=== PATIENT | female | born 1980 | race Asian ===

== ENCOUNTER 2016-12-02 00:13 | Emergency (ER) | payer OTHER ==
[~2016-12-02] VITALS: Ht 165.1 cm; Wt 95.3 kg
[~2016-12-02 00:13] MED LIST: ATEN25TA21 PO; DIOVAN320 MG PO; DIVA500T2 PO; FLUTICASONE50 MCG; HALO10TA5 PO; LEVO0.0218 PO; LEVO0.1224 PO; NEXIUM40 M1 PO; SERT100T PO; SIMV10TA PO; TRAZ100T PO; ZANTAC 75 PO
[2016-12-02 01:42] VITALS: BP 165/80; TEMP 98.5
== END 2016-12-02 01:43 | disposition home or self-care (01) ==
LOC: ED 00:13
DX: F20.0 Paranoid schizophrenia (principal); R44.0 Auditory hallucinations
CPT/HCPCS: 99282

== ENCOUNTER 2017-03-15 15:30 | Emergency (ER) | payer OTHER ==
[~2017-03-15] VITALS: Ht 162.6 cm; Wt 100.7 kg
[2017-03-15 15:30] VITALS: TEMP 99.3
[2017-03-15 16:00] VITALS: BP 158/104
== END 2017-03-15 16:00 | disposition home or self-care (01) ==
LOC: ED 15:30
DX: K08.89 Other specified disorders of teeth and supporting structures (principal); K02.9 Dental caries, unspecified; K04.7 Periapical abscess without sinus; K05.30 Chronic periodontitis, unspecified
CPT/HCPCS: 99281

== ENCOUNTER 2017-07-16 13:57 | Emergency (ER) | payer OTHER ==
[~2017-07-16] VITALS: Ht 165.1 cm; Wt 95.3 kg
[2017-07-16 14:00] VITALS: BP 135/75; TEMP 98
== END 2017-07-16 14:15 | disposition home or self-care (01) ==
LOC: ED 13:57
DX: R05 Cough (principal); R09.81 Nasal congestion
CPT/HCPCS: 99281

== ENCOUNTER 2017-08-04 10:34 | Emergency (ER) | payer OTHER ==
[~2017-08-04] VITALS: Ht 165.1 cm; Wt 102.5 kg
[~2017-08-04 10:34] MED LIST changes: +AMLO2.5T PO; +ATEN50TA36 PO; +SERT50TA PO; +TIROSINT25 MCG PO; +ZINC PO
[2017-08-04 10:40] VITALS: TEMP 97.9
[2017-08-04 11:21] LABS: PLATELET COUNT 484 K/uL (152-353)
[2017-08-04 11:59] LABS: POTASSIUM 3.9 mmol/L (3.6-5.2); SODIUM 133 mmol/L (136-145)
[2017-08-04 19:36] VITALS: BP 132/80
== END 2017-08-04 19:36 | disposition home or self-care (01) ==
LOC: ED 10:34
DX: R44.2 Other hallucinations (principal)
CPT/HCPCS: 36415; 80053; 80307; 80320; 80329; 81000; 85027; 99285; G0479

== ENCOUNTER 2018-01-29 12:44 | Emergency (ER) | payer OTHER ==
[~2018-01-29] VITALS: Ht 165.1 cm; Wt 95.3 kg
[2018-01-29 12:52] VITALS: BP 127/80; TEMP 98.7
[2018-01-29 13:49] LABS: PLATELET COUNT 295 K/uL (152-353)
[2018-01-29 14:21] LABS: POTASSIUM 3.6 mmol/L (3.6-5.2)
== END 2018-01-29 17:37 | disposition other institution (70) ==
LOC: ED 12:44
PROVIDERS: Family Medicine
DX: R45.851 Suicidal ideations (principal); F32.89 Other specified depressive episodes
CPT/HCPCS: 36415; 80053; 80307; 80320; 80329; 81000; 84443; 85027; 93005; 99285

== ENCOUNTER 2018-02-23 09:47 | Emergency (ER) | payer OTHER ==
[~2018-02-23] VITALS: Ht 165.1 cm; Wt 95.3 kg
[2018-02-23 11:17] LABS: PLATELET COUNT 316 K/uL (152-353)
[2018-02-23 11:24] LABS: POTASSIUM 3.9 mmol/L (3.6-5.2)
[2018-02-23 11:59] VITALS: BP 116/77; TEMP 98.2
== END 2018-02-23 12:06 | disposition home or self-care (01) ==
LOC: ED 09:47
PROVIDERS: Family Medicine
DX: R05 Cough (principal); R06.2 Wheezing
CPT/HCPCS: 36415; 80048; 85027; 94664; 96367; 96374; 99284; J0696; J2930; J3475

== ENCOUNTER 2018-05-21 22:43 | Emergency (ER) | payer OTHER ==
[~2018-05-21] VITALS: Ht 165.1 cm; Wt 102.1 kg
[2018-05-21] MEDS ORDERED: CLON1TAB18 PO (23:39)
[2018-05-21 23:49] VITALS: BP 126/70; TEMP 98.5
== END 2018-05-21 23:53 | disposition home or self-care (01) ==
LOC: ED 22:43
DX: F20.89 Other schizophrenia (principal); R44.2 Other hallucinations
CPT/HCPCS: 99283

== ENCOUNTER 2018-05-30 00:54 | Emergency (ER) | payer OTHER ==
[~2018-05-30] VITALS: Ht 165.1 cm; Wt 102.1 kg
[~2018-05-30 00:54] MED LIST changes: +CLON1TAB18 PO
[2018-05-30 01:56] LABS: PLATELET COUNT 286 K/uL (152-353)
[2018-05-30 05:44] VITALS: BP 150/90; TEMP 98.1
== END 2018-05-30 05:44 | disposition home or self-care (01) ==
LOC: ED 00:54
DX: F20.89 Other schizophrenia (principal); F28 Other psychotic disorder not due to a substance or known physiological condition; F32.89 Other specified depressive episodes
CPT/HCPCS: 36415; 80053; 80307; 81000; 85027; 93005; 99283

== ENCOUNTER 2018-07-20 16:10 | Outpatient (CLI) | payer OTHER ==
[2018-07-20] MEDS ORDERED: ATEN50TA36 PO (16:31)
[2018-07-20] MEDS ORDERED: HALO10TA5 PO (16:32)
[2018-07-20] MEDS ORDERED: LAMICTAL25 MG PO (16:33)
[2018-07-20] MEDS ORDERED: LEXAPRO10 MG PO (16:34)
== END 2018-07-20 16:14 | disposition short-term general hospital (02) ==
LOC: AMB 16:10
DX: F32.89 Other specified depressive episodes (principal)
CPT/HCPCS: A0425; A0429

== ENCOUNTER 2018-07-20 16:18 | Emergency (ER) | payer OTHER ==
[~2018-07-20] VITALS: Ht 165.1 cm; Wt 96.6 kg
[2018-07-20] MEDS ORDERED: ATEN50TA36 PO (16:31)
[2018-07-20] MEDS ORDERED: HALO10TA5 PO (16:32)
[2018-07-20] MEDS ORDERED: LAMICTAL25 MG PO (16:33)
[2018-07-20] MEDS ORDERED: LEXAPRO10 MG PO (16:34)
[2018-07-20 16:51] LABS: PLATELET COUNT 244 K/uL (152-353)
[2018-07-20 17:03] LABS: POTASSIUM 3.7 mmol/L (3.6-5.2)
[2018-07-20 21:21] VITALS: BP 124/88; TEMP 98.4
== END 2018-07-20 21:25 | disposition other institution (70) ==
LOC: ED 16:18
PROVIDERS: Emergency Medicine
DX: R45.851 Suicidal ideations (principal); R00.1 Bradycardia, unspecified
CPT/HCPCS: 80053; 80307; 80320; 80329; 81000; 85027; 93005; 99285

== ENCOUNTER 2018-10-28 21:03 | Emergency (ER) | payer OTHER ==
[~2018-10-28] VITALS: Ht 165.1 cm; Wt 101.6 kg
[~2018-10-28 21:03] MED LIST changes: +LAMICTAL25 MG PO; +LEXAPRO10 MG PO
[2018-10-28 22:00] VITALS: BP 121/85; TEMP 97.6
== END 2018-10-28 22:00 | disposition home or self-care (01) ==
LOC: ED 21:03
DX: F20.89 Other schizophrenia (principal); F32.89 Other specified depressive episodes; F31.89 Other bipolar disorder; I10 Essential (primary) hypertension; E03.8 Other specified hypothyroidism
CPT/HCPCS: 99282

== ENCOUNTER 2019-01-14 01:19 | Emergency (ER) | payer OTHER ==
[~2019-01-14] VITALS: Ht 165.1 cm; Wt 101.2 kg
[2019-01-14 01:23] VITALS: BP 146/87; TEMP 98.7
== END 2019-01-14 01:52 | disposition home or self-care (01) ==
LOC: ED 01:19
DX: G47.09 Other insomnia (principal); F31.89 Other bipolar disorder; F20.89 Other schizophrenia
CPT/HCPCS: 99281

== ENCOUNTER 2019-02-19 00:38 | Emergency (ER) | payer OTHER ==
[~2019-02-19] VITALS: Ht 165.1 cm; Wt 101.2 kg
[2019-02-19 00:45] VITALS: TEMP 98.7
[2019-02-19 01:27] LABS: PLATELET COUNT 294 K/uL (152-353)
[2019-02-19 01:31] LABS: POTASSIUM 3.3 mmol/L (3.6-5.2); SODIUM 139 mmol/L (136-145)
[2019-02-19 03:35] VITALS: BP 169/84
== END 2019-02-19 03:39 | disposition home or self-care (01) ==
LOC: ED 00:38
PROVIDERS: Emergency Medicine
DX: R07.89 Other chest pain (principal); R00.1 Bradycardia, unspecified
CPT/HCPCS: 80053; 82550; 84484; 85027; 99283

== ENCOUNTER 2019-03-08 19:32 | Emergency (ER) | payer OTHER ==
[2019-03-09] MEDS ORDERED: AMLODIPINE BESYLATE PO (00:18)
== END 2019-03-08 19:50 | disposition home or self-care (01) ==
LOC: ED 19:32
DX: R10.9 Unspecified abdominal pain (principal)
CPT/HCPCS: 99281

== ENCOUNTER 2019-03-08 20:58 | Emergency (ER) | payer OTHER ==
[~2019-03-08] VITALS: Ht 165.1 cm; Wt 101.2 kg
[2019-03-08 22:35] VITALS: BP 221/111
[2019-03-08 23:12] LABS: PLATELET COUNT 404 K/uL (152-353)
[2019-03-08 23:23] LABS: POTASSIUM 3.4 mmol/L (3.6-5.2)
[2019-03-08 23:58] VITALS: TEMP 98.2
[2019-03-09] MEDS ORDERED: AMLODIPINE BESYLATE PO (00:18)
== END 2019-03-09 00:12 | disposition home or self-care (01) ==
LOC: ED 20:58
PROVIDERS: Internal Medicine
DX: E87.6 Hypokalemia (principal); R10.84 Generalized abdominal pain; R11.0 Nausea
CPT/HCPCS: 36415; 74022; 80053; 82150; 83690; 85027; 96372; 99283; J2405

== ENCOUNTER 2019-06-15 06:13 | Emergency (ER) | payer OTHER ==
[~2019-06-15] VITALS: Ht 165.1 cm; Wt 101.2 kg
[~2019-06-15 06:13] MED LIST changes: +AMLODIPINE BESYLATE PO
[2019-06-15 06:34] VITALS: TEMP 98.8
[2019-06-15 07:38] VITALS: BP 144/84
== END 2019-06-15 07:38 | disposition home or self-care (01) ==
LOC: ED 06:13
DX: J20.9 Acute bronchitis, unspecified (principal)
CPT/HCPCS: 99281

== ENCOUNTER 2019-06-29 19:37 | Emergency (ER) | payer OTHER ==
[~2019-06-29] VITALS: Ht 165.1 cm; Wt 97.5 kg
[2019-06-29 20:24] LABS: PLATELET COUNT 395 K/uL (152-353)
[2019-06-29 20:35] LABS: POTASSIUM 3.7 mmol/L (3.6-5.2)
[2019-06-29 20:40] LABS: PARTIAL THROMBOPLASTIN TIME 25.9 SECONDS (24.5-33.6)
[2019-06-29 20:48] VITALS: BP 172/113; TEMP 98.1
== END 2019-06-29 20:48 | disposition home or self-care (01) ==
LOC: ED 19:37
PROVIDERS: Hospitalist
DX: K64.8 Other hemorrhoids (principal); K62.89 Other specified diseases of anus and rectum; E07.89 Other specified disorders of thyroid
CPT/HCPCS: 36415; 80048; 81000; 81025; 85027; 85610; 85730; 96372; 99283; J1885

== ENCOUNTER 2019-08-01 01:47 | Emergency (ER) | payer OTHER ==
[~2019-08-01] VITALS: Ht 165.1 cm; Wt 97.5 kg
[2019-08-01 02:45] VITALS: BP 138/78; TEMP 97.9
== END 2019-08-01 02:45 | disposition home or self-care (01) ==
LOC: ED 01:47
DX: B36.8 Other specified superficial mycoses (principal); L29.8 Other pruritus
CPT/HCPCS: 96372; 99282; J1200

== ENCOUNTER 2019-09-06 23:02 | Outpatient (CLI) | payer OTHER | END 2019-09-06 23:11 | disposition short-term general hospital (02) | LOC: AMB 23:02 | DX: R21 Rash and other nonspecific skin eruption (principal) | CPT/HCPCS: A0425; A0429 ==

== ENCOUNTER 2019-09-06 23:15 | Emergency (ER) | payer OTHER ==
[~2019-09-06] VITALS: Ht 165.1 cm; Wt 97.5 kg
[2019-09-07 00:35] VITALS: BP 166/74; TEMP 97.5
== END 2019-09-07 00:35 | disposition home or self-care (01) ==
LOC: ED 23:15
DX: L01.09 Other impetigo (principal)
CPT/HCPCS: 99282

== ENCOUNTER 2019-10-09 00:07 | Outpatient (CLI) | payer OTHER | END 2019-10-09 00:16 | disposition short-term general hospital (02) | LOC: AMB 00:07 | DX: R10.9 Unspecified abdominal pain (principal) | CPT/HCPCS: A0425; A0427 ==

== ENCOUNTER 2019-10-09 00:20 | Emergency (ER) | payer OTHER ==
[~2019-10-09] VITALS: Ht 165.1 cm; Wt 97.5 kg
[2019-10-09 00:58] LABS: PLATELET COUNT 284 K/uL (152-353)
[2019-10-09 01:02] LABS: POTASSIUM 3.7 mmol/L (3.6-5.2); SODIUM 137 mmol/L (136-145)
[2019-10-09 02:17] VITALS: BP 139/81; TEMP 97.7
== END 2019-10-09 02:20 | disposition home or self-care (01) ==
LOC: ED 00:20
PROVIDERS: Emergency Medicine
DX: R10.84 Generalized abdominal pain (principal); R14.1 Gas pain; K59.09 Other constipation
CPT/HCPCS: 36415; 80053; 81000; 81025; 82150; 83690; 84702; 85027; 96360; 96375; 99284; J1885

== ENCOUNTER 2019-12-08 06:06 | Outpatient (CLI) | payer OTHER | END 2019-12-08 15:12 | disposition short-term general hospital (02) | LOC: AMB 06:06 | DX: R10.84 Generalized abdominal pain (principal) | CPT/HCPCS: A0425; A0427 ==

== ENCOUNTER 2019-12-08 06:15 | Emergency (ER) | payer OTHER ==
[~2019-12-08] VITALS: Ht 165.1 cm; Wt 97.5 kg
[2019-12-08 06:15] VITALS: TEMP 98.1
[2019-12-08 06:40] LABS: PLATELET COUNT 307 K/uL (152-353)
[2019-12-08 06:48] LABS: POTASSIUM 4.4 mmol/L (3.6-5.2)
[2019-12-08 10:16] VITALS: BP 133/71
== END 2019-12-08 10:16 | disposition home or self-care (01) ==
LOC: ED 06:15
PROVIDERS: Emergency Medicine
DX: R10.84 Generalized abdominal pain (principal); R14.1 Gas pain
CPT/HCPCS: 80053; 81000; 82150; 83690; 85027; 99283; Q9963

== ENCOUNTER → 2020-05-28 | Emergency (ER) | payer OTHER ==
[~2020-05-28] VITALS: Ht 165.1 cm; Wt 97.5 kg
[2020-05-28 03:43] LABS: PLATELET COUNT 334 K/uL (152-353)
[2020-05-28 03:59] LABS: POTASSIUM 4.8 mmol/L (3.6-5.2)
[2020-05-28 04:29] VITALS: BP 133/55; TEMP 98
== END ==
LOC: ED 03:08
PROVIDERS: Hospitalist
DX: R10.84 Generalized abdominal pain (principal); K59.09 Other constipation
CPT/HCPCS: 36415; 80053; 81000; 81025; 82150; 83690; 85027; 93005; 96374; 99284; J2405

== ENCOUNTER 2020-06-02 15:23 | Emergency (ER) | payer OTHER ==
[~2020-06-02] VITALS: Ht 165.1 cm; Wt 97.5 kg
[2020-06-02 16:15] LABS: PLATELET COUNT 250 K/uL (152-353)
[2020-06-02 16:20] LABS: POTASSIUM 3.9 mmol/L (3.6-5.2)
[2020-06-02 16:22] VITALS: BP 118/62; TEMP 98.7
[2020-06-02 16:28] LABS: PARTIAL THROMBOPLASTIN TIME 26.7 SECONDS (24.5-33.6)
== END 2020-06-02 16:31 | disposition home or self-care (01) ==
LOC: ED 15:23
PROVIDERS: Hospitalist
DX: K64.8 Other hemorrhoids (principal); Z79.01 Long term (current) use of anticoagulants
CPT/HCPCS: 80048; 82272; 85027; 85610; 85730; 99283

== ENCOUNTER 2020-08-29 12:03 | Outpatient (CLI) | payer OTHER | END 2020-08-29 22:59 | disposition home or self-care (01) | LOC: RAD 12:03 | DX: M54.16 Radiculopathy, lumbar region (principal) ==

== ENCOUNTER 2020-09-10 14:20 | Outpatient (CLI) | payer OTHER | END 2020-09-10 22:34 | disposition home or self-care (01) | LOC: US 14:20 | DX: R23.0 Cyanosis (principal) ==

== ENCOUNTER 2023-03-05 15:06 | Emergency (ER) | payer OTHER ==
[~2023-03-05] VITALS: Ht 165.1 cm; Wt 104.3 kg
[2023-03-05 15:10] VITALS: BP 140/72; TEMP 98.5
[2023-03-05 16:15] LABS: PLATELET COUNT 268 K/uL (152-353)
[2023-03-05 16:23] LABS: POTASSIUM 3.9 mmol/L (3.6-5.2)
== END 2023-03-05 18:00 | disposition home or self-care (01) ==
LOC: ED 15:06
PROVIDERS: Family Medicine
DX: E11.65 Type 2 diabetes mellitus with hyperglycemia (principal); Z79.84 Long term (current) use of oral hypoglycemic drugs; F20.89 Other schizophrenia; I10 Essential (primary) hypertension; E03.8 Other specified hypothyroidism; F17.210 Nicotine dependence, cigarettes, uncomplicated
CPT/HCPCS: 80053; 80307; 81002; 81025; 82150; 83690; 84443; 84484; 85027; 93005; 99283

== ENCOUNTER 2023-03-24 20:43 | Emergency (ER) | payer OTHER ==
[~2023-03-24] VITALS: Ht 165.1 cm; Wt 111.1 kg
[2023-03-24 20:45] VITALS: BP 138/77; TEMP 98.7
== END 2023-03-24 22:30 | disposition home or self-care (01) ==
LOC: ED 20:43
DX: R53.1 Weakness (principal)
CPT/HCPCS: 82948; 99282